=== PATIENT | female | born 1970 | race Caucasian/White ===

== ENCOUNTER → 2018-08-13 10:52 | Emergency (ER) | payer BC ==
[~2018-08-13 10:52] MED LIST: NS 0.9% 1000 ML* 1,000 ML IV ONE
[2018-08-13 11:39] LABS: ABS Basophils 0 10^3/ul (0-0.2); ABS Eosinophils 0.1 10^3/ul (0-0.6); ABS Lymphocytes 1.7 10^3/ul (1.0-4.8); ABS Monocytes 0.5 10^3/ul (0-0.8); ABS Nucleated RBC 0 10^3/ul; Eosinophil % 0.9 % (0-6); Hematocrit 45 % (35-47); Hemoglobin 15.1 g/dl (12.0-16.0); Lymphocyte % 20.6 % (25-47); Mean Corpuscular HGB Conc 34 g/dl (31-36); Mean Corpuscular Hemoglobin 32 pg (27-31); Mean Corpuscular Volume 94 fL (80-97); Mean Platelet Volume 7.3 um3 (7.4-10.4); Nucleated Red Blood Cells % 0; Platelet Count 290 10^3/ul (150-450); Red Blood Count 4.77 10^6/ul (4.00-5.40); Red Cell Distribution Width 13 % (10.5-15); White Blood Count 8.2 10^3/ul (3.5-10.8)
--- NOTE | 2018-08-13 11:40 | ED ---
HPI Cardiac - HPI Summary HPI Summary: Patient is a 48 y/o F w/ c/o palpitations onsetting this morning at 0300. She also notes SOB, "clamminess", shakiness, nausea and tingling in her hands. This episode lasted for 30-45 minutes. A second episode is reported to have started after the patient awoke later in the morning. This episode lasted a longer time. In the room, patient states she is no longer experiencing palpitations. She does note that she is still experiencing tingling in her hands. Palpitations are reported to have been irregular. Pain is denied. She reports experiencing a handful of minute-long episodes of fast heartbeat over the past two weeks. Patient was on a four hour flight two days ago. She states she got up x3 during the flight, reports no leg edema. Patient notes she drank over half a bottle of wine last night. She states she took ibuprofen today. Patient notes normal food/fluid intake, normal urination and bowel movements. On triage , nothing is noted to aggravate/alleviate Sx. PSHx of x3 caesarean section. Home medications and allergies are reviewed. - History of Current Complaint Chief Complaint: EDDysrhythmPalp Stated Complaint: HEART PALPATATIONS/TINGLE IN HANDS AND LIPS/CLAMY Time Seen by Provider: 08/13/18 11:04 Hx Obtained From: Patient Onset/Duration: Started Hours Ago - palpitaitons, SOB, "clamminess", shakiness, nausea and tingling in her hands, Started Weeks Ago - episodes of intermittent fast heartbeat, Still Present - hands tingling, Resolved - chest palpitations Timing: Intermittent - palpitations Current Severity: None - pain is denied Pain Intensity: 0 Pain Scale Used: 0-10 Numeric - 0/10 Character: Other: - palpitaions Aggravating Factor(s): Nothing Alleviating Factor(s): Nothing Associated Signs and Symptoms: Positive: Tingling, Shortness of Breath, Nausea, Other: - POSITIVE: palpitations, "clamminess", shakiness NEGATIVE: abnormal food /fluid intake, abnormal urination and bowel movements. Negative: Swelling - Allergy/Home Medications Allergies/Adverse Reactions: Allergies Allergy/AdvReac Type Severity Reaction Status Date / Time No Known Allergies Allergy Verified 08/13/18 10:57 Home Medications: Home Medications NK [No Home Medications Reported] 08/13/18 [History Confirmed 08/13/18] PMH/Surg Hx/FS Hx/Imm Hx Sensory History: Denies: Hx Legally Blind, Hx Deafness Opthamlomology History: Denies: Hx Legally Blind EENT History: Denies: Hx Deafness - Surgical History Surgery Procedure, Year, and Place: x3 caesarean section Infectious Disease History: No Infectious Disease History: Denies: Traveled Outside the [place] in Last 30 Days - Family History Known Family History: Positive: Hypertension - father Negative: Diabetes - Social History Alcohol Use: Occasionally Substance Use Type: Reports: None Smoking Status (MU): Never Smoked Tobacco Review of Systems Positive: Other - POSITIVE: shakiness, "clamminess" NEGATIVE: abnormal fluid/ food intake Positive: Palpitations Positive: Shortness Of Breath Positive: Nausea Positive: other - NEGATIVE: abnormal bowel movement/urination Negative: Edema Neurological: Other - POSITIVE: hand tingling All Other Systems Reviewed And Are Negative: Yes Physical Exam - Summary Physical Exam Summary: Appearance: The patient is well-nourished in no acute distress and in no acute pain. Skin: The skin is warm and dry and skin color reflects adequate perfusion. HEENT: The head is normocephalic and atraumatic. The pupils are equal and reactive. The conjunctivae are clear and without drainage. Nares are patent and without drainage. Mouth reveals moist mucous membranes and the throat is without erythema and exudate. The external ears are intact. The ear canals are patent and without drainage. The tympanic membranes are intact. Neck: The neck is supple with full range of motion and non-tender. There are no carotid bruits. There is no neck vein distension. Respiratory: Chest is non-tender. Lungs are clear to auscultation and breath sounds are symmetrical and equal. Cardiovascular: Tachycardic. There is no murmur or rub auscultated. There is no peripheral edema and pulses are symmetrical and equal. Abdomen: The abdomen is soft and non-tender. There are normal bowel sounds heard in all four quadrants and there is no organomegaly palpated. Musculoskeletal: There is no back tenderness noted. Extremities are non-tender with full range of motion. There is good capillary refill. There is no peripheral edema or calf tenderness elicited. Neurological: Patient is alert and oriented to person, place and time. The patient has symmetrical motor strength in all four extremities. Cranial nerves are grossly intact. Deep tendon reflexes are symmetrical and equal in all four extremities. Psychiatric: The patient has an appropriate affect and does not exhibit any anxiety or depression. Triage Information Reviewed: Yes Vital Signs On Initial Exam: Initial Vitals Temp Pulse Resp BP Pulse Ox 98.5 F 115 16 128/86 100 08/13/18 10:53 08/13/18 10:53 08/13/18 10:53 08/13/18 10:53 08/13/18 10:53 Vital Signs Reviewed: Yes Diagnostics - Vital Signs Vital Signs Temp Pulse Resp BP Pulse Ox 08/13/18 10:53 98.5 F 115 16 128/86 100 - Laboratory Result Diagrams: 08/13/18 11:22 08/13/18 11:22 Lab Statement: Any lab studies that have been ordered have been reviewed, and results considered in the medical decision making process. - EKG 1111 Cardiac Rate: Tachycardia - rate of 117 BPM EKG Rhythm: Sinus Tachycardia EKG Interpretation: diffuse non specific ST depressions Disposition - Course Course Of Treatment: Ms. Whitney woke up to use the bathroom in the wee hours of the morning and noted her heart racing. She waited a few minutes and it seemed to improve and she was able to go back to bed and sleep. When she woke up with continued to occur. She tried to relax using yoga with a friend but this did not help. She felt tingling in her bilateral fingertips and mild shortness of breath during the episodes. She feels improved except for the mild tingling on presentation. Her exam was unremarkable and her vital signs are stable here in the emergency department aside from some mild tachycardia. She was kept on a monitor while labs were checked all of which were within normal limits. She did drink a fair amount of alcohol last night as she is here for a college reunion and she presented mildly tachycardic. She was given a liter of normal saline and felt much improved and her heart rate normalized. We did not catch any dysrhythmia on our monitor and I recommended she follow up with her PCP when she gets back to [place]. - Diagnoses Provider Diagnoses: Palpitations, Dehydration Discharge - Sign-Out/Discharge Documenting (check all that apply): Patient Departure - discharge - Discharge Plan Condition: Stable Disposition: HOME Patient Education Materials: Heart Palpitations (ED) Referrals: No Primary Care Phys,NOPCP [Primary Care Provider] - - Billing Disposition and Condition Condition: STABLE Disposition: Home - Attestation Statements Document Initiated by Johnna: Yes Documenting Scribe: Rickey Dotson Provider For Whom Johnna is Documenting (Include Credential): Ulises Ohara MD Scribe Attestation: Rickey Méndez , scribed for Ulises Ohara MD on 08/13/18 at 1752. Scribe Documentation Reviewed: Yes Provider Attestation: The documentation as recorded by the Rickey toth accurately reflects the service I personally performed and the decisions made by me, Ulises Ohara MD
[2018-08-13 11:51] LABS: EGFR Non-African American 89.7 (>60)
[2018-08-13 14:14] VITALS: BP 109/71
== END | disposition home or self-care (01) ==
LOC: ED 10:52
DX: R00.2 Palpitations (principal); E86.0 Dehydration; R06.02 Shortness of breath; R94.31 Abnormal electrocardiogram [ECG] [EKG]
CPT/HCPCS: 36415; 80053; 83605; 83735; 84443; 84484; 84702; 85025; 85379; 93005; 99282

== ENCOUNTER 2018-08-15 12:55 | Emergency (ER) | payer BC ==
--- NOTE | 2018-08-15 13:22 | ED ---
HPI Cardiac - HPI Summary HPI Summary: Patient is 48 y/o F w/ c/o tingling in BUE and face as well as chest heaviness. Sx onset around noon today. Patient denies palpitations and heart racing. She states she drank around three glasses of wine last night. Patient was seen three days ago for similar Sx. She was negative for DVT, EKG was not concerning. She was discharged to home and received Dx of dehydration and palpitations. In the room, patient's pulse is 155 and BP is 130/93. On triage, pain is denied, nothing is noted to aggravate/alleviate Sx. Home medications and allergies are reviewed. - History of Current Complaint Chief Complaint: EDGeneral Stated Complaint: TINGLING IN FINGERS/FACE Time Seen by Provider: 08/15/18 13:11 Hx Obtained From: Patient Onset/Duration: Started Hours Ago - onset around noon today, Still Present Current Severity: None Pain Intensity: 0 Pain Scale Used: 0-10 Numeric - 0/10 Character: Heaviness Aggravating Factor(s): Nothing Alleviating Factor(s): Nothing Associated Signs and Symptoms: Positive: Tingling - face, BUE, Other: - chest heaviness. Negative: Palpitations - Allergy/Home Medications Allergies/Adverse Reactions: Allergies Allergy/AdvReac Type Severity Reaction Status Date / Time No Known Allergies Allergy Verified 08/15/18 12:56 PMH/Surg Hx/FS Hx/Imm Hx Sensory History: Denies: Hx Legally Blind, Hx Deafness Opthamlomology History: Denies: Hx Legally Blind - Surgical History Surgery Procedure, Year, and Place: x3 caesarean section Infectious Disease History: No Infectious Disease History: Denies: Traveled Outside the [place] in Last 30 Days - Family History Known Family History: Positive: Hypertension - father Negative: Diabetes - Social History Alcohol Use: Occasionally Substance Use Type: Reports: None Smoking Status (MU): Never Smoked Tobacco Review of Systems Positive: Other - chest heaviness . Negative: Palpitations Neurological: Other - tingling in BUE, face All Other Systems Reviewed And Are Negative: Yes Physical Exam - Summary Physical Exam Summary: Appearance: Well appearing, no pain distress Skin: warm, dry, reflects adequate perfusion Head/face: normal Eyes: EOMI, CODIE ENT: mucous membranes moist Neck: supple, non-tender Respiratory: CTA, breath sounds present Cardiovascular: tachycardia, irregularly irregular rhythm Abdomen: non-tender, soft Bowel Sounds: present Musculoskeletal: normal, strength/ROM intact Neuro: normal, sensory motor intact, A&Ox3 Triage Information Reviewed: Yes Vital Signs On Initial Exam: Initial Vitals Temp Pulse Resp BP Pulse Ox 97.6 F 126 16 126/77 97 08/15/18 12:56 08/15/18 12:56 08/15/18 12:56 08/15/18 12:56 08/15/18 12:56 Vital Signs Reviewed: Yes Diagnostics - Vital Signs Vital Signs Temp Pulse Resp BP Pulse Ox 08/15/18 12:56 97.6 F 126 16 126/77 97 - Laboratory Result Diagrams: 08/15/18 13:38 08/15/18 13:38 Lab Statement: Any lab studies that have been ordered have been reviewed, and results considered in the medical decision making process. - EKG 1313 Cardiac Rate: Other Rate - rapid afib of 149 BPM EKG Rhythm: Atrial Fibrillation - rapid ST Segment: Non-Specific EKG Interpretation: normal axis 1435 Cardiac Rate: NL - rate of 83 bpm EKG Rhythm: Sinus Rhythm ST Segment: Normal EKG Interpretation: normal axis, normal interval Re-Evaluation - Re-Evaluation First Eval Re-Evaluation Time: 14:38 Change: Improved Comment: Patient is out of afib. Discussed results of labs and EKGs. She will be discharged to home and is advised to follow up with PCP and pipe roller. Disposition - Course Course Of Treatment: Patient was second presentation in 2 days with intermittent tingling and poor feeling. She is found to be in rapid atrial fibrillation on arrival. She was having episodes of sinus rhythm. She was given beta ai hydration and IV magnesium. Her heart rate normalized and her rhythm converted to normal sinus rhythm. She has no independent risk factors for atrial fibrillation other than her mother having same. She was started on oral metoprolol here we continue her on same outpatient. On return home to [place] she will follow-up with primary care physician with recommendation for echocardiogram and cardiology referral. There is no indication at this point for anticoagulation. 2 days ago the patient had a TSH which was normal, magnesium which was low at 1.8 and d-dimer that was nondetected. - Differential Dx - Cardiopulmonary Differential Diagnoses - Cardiopulmonary: Other - A. fib, and SVT, PACs, electrolyte abnormality, PE, WI, hyperthyroid - Diagnoses Provider Diagnoses: Hypomagnesemia, Paroxysmal atrial fibrillation - Critical Care Time Critical Care Time: 30-74 min - CCT is EXCLUSIVE of separately billable procedures. Discharge - Sign-Out/Discharge Documenting (check all that apply): Patient Departure - discharge - Discharge Plan Condition: Improved Disposition: HOME Prescriptions: Magnesium Oxide TAB* [MagOx 400 TAB*] 400 mg PO DAILY #30 tab Metoprolol Tartrate TAB* [Lopressor TAB*] 12.5 mg PO BID #30 tab Patient Education Materials: A-fib (Atrial Fibrillation) (ED) Referrals: [facility] [Outside] Additional Instructions: Follow-up with your doctor and cardiology on arrival back in [place]. Drink plenty of fluids, avoid alcohol and caffeine. Take medications as prescribed. A daily multivitamin may help. Return if worse, new symptoms or other concerns. - Billing Disposition and Condition Condition: IMPROVED Disposition: Home - Attestation Statements Document Initiated by [place]ibe: Yes Documenting Scribe: Rickey Dotson Provider For Whom Johnna is Documenting (Include Credential): Shawn Mclaughlin MD Scribe Attestation: IRickey , scribed for Shawn Mclaughlin MD on 08/15/18 at 1504. Scribe Documentation Reviewed: Yes Provider Attestation: The documentation as recorded by the scribeRickey accurately reflects the service I personally performed and the decisions made by me, Shawn Mclaughlin MD
[2018-08-15] MEDS ORDERED: Adenosine* 3 MG/ML VIAL ONE (13:28)
[2018-08-15] MEDS ORDERED: Magnesium Sulfate IV* 0.5 GM/ML 2 ML VIAL (1 GM) ONE (13:29)
[2018-08-15] MEDS ORDERED: Magnesium Sulfate 2 GM IV* 2 GM/50 ML BAG ONE (13:30)
[2018-08-15] MEDS ORDERED: Diltiazem DRIP* 0 MG/0 ML ADDV.BAG IVPB ONE (13:30)
[2018-08-15] MEDS ORDERED: Ondansetron INJ* 2 MG/ML VIAL ONE (13:30)
[2018-08-15] MEDS ORDERED: Metoprolol Tartrate IV* 1 MG/ML 5 ML VIAL ONE (13:33)
[2018-08-15] MEDS ORDERED: Ondansetron INJ* 2 MG/ML VIAL IV ONE (13:36)
[2018-08-15] MEDS ORDERED: Metoprolol Tartrate IV* 1 MG/ML 5 ML VIAL IV ONE (13:36)
[2018-08-15] MEDS ORDERED: Magnesium Sulfate 2 GM IV* 2 GM/50 ML BAG IVPB ONE (13:38)
[2018-08-15 13:49] LABS: ABS Basophils 0 10^3/ul (0-0.2); ABS Eosinophils 0 10^3/ul (0-0.6); ABS Lymphocytes 1.5 10^3/ul (1.0-4.8); ABS Monocytes 0.5 10^3/ul (0-0.8); ABS Neutrophils 4.7 10^3/ul (1.5-7.7); ABS Nucleated RBC 0 10^3/ul; Eosinophil % 0.3 % (0-6); Hematocrit 43 % (35-47); Hemoglobin 14.4 g/dl (12.0-16.0); Mean Corpuscular HGB Conc 34 g/dl (31-36); Mean Corpuscular Hemoglobin 32 pg (27-31); Mean Corpuscular Volume 93 fL (80-97); Mean Platelet Volume 6.9 um3 (7.4-10.4); Nucleated Red Blood Cells % 0; Platelet Count 280 10^3/ul (150-450); Red Blood Count 4.57 10^6/ul (4.00-5.40); Red Cell Distribution Width 13 % (10.5-15); White Blood Count 6.7 10^3/ul (3.5-10.8)
[2018-08-15 14:14] LABS: EGFR Non-African American 103.2 (>60)
[2018-08-15] MEDS ORDERED: Metoprolol Tartrate TAB* 25 MG PO ONE (14:18)
[2018-08-15 14:27] VITALS: BP 125/85
== END 2018-08-15 14:57 | disposition home or self-care (01) ==
LOC: ED 12:55
DX: E83.42 Hypomagnesemia (principal); I48.0 Paroxysmal atrial fibrillation
CPT/HCPCS: 36415; 80048; 84484; 85025; 93005; 96365; 96375; 99283; J0153; J2405; J3475; J3490